=== PATIENT | female | born 1980 | race Caucasian/White ===

== ENCOUNTER 2024-06-29 10:37 | Emergency (ER) | payer OTHER ==
[~2024-06-29] VITALS: Ht 160 cm; Wt 78.5 kg
[2024-06-29] MEDS ORDERED: LITHIUM CARBON300 M2 PO (10:56)
[2024-06-29] MEDS ORDERED: ATAZANAVIR SUL300 MG PO (10:56)
[2024-06-29] MEDS ORDERED: METHYLPHENIDATE10 MG PO (10:56)
[2024-06-29] MEDS ORDERED: ATORVASTATIN CA20 MG PO (10:56)
[2024-06-29] MEDS ORDERED: LEVOTHYROXINE100 MCG PO (10:56)
[2024-06-29] MEDS ORDERED: CETIRIZINE HCL10 MG PO (10:57)
[2024-06-29] MEDS ORDERED: RITONAVIR100 MG PO (10:57)
[2024-06-29] MEDS ORDERED: LEVETIRACETAM500 MG PO (10:57)
[2024-06-29] MEDS ORDERED: TIVICAY50 MG PO (10:57)
[2024-06-29 11:06] LABS: BASOPHILS 1.2 % (0-2); EOSINOPHILS 1.4 % (0-6); HEMATOCRIT 40.3 % (35.0-50.0); HEMOGLOBIN 13.4 g/dL (12.0-18.0); LYMPHOCYTES 33.3 % (24-44); MCH 30.1 (27-36); MCHC 33.3 g/dl (30-36); MCV 90.4 fl (81-99); MONOCYTES 5.6 % (0-12); NEUTROPHILS 58.5 % (39-80); PLATELET COUNT 388 K/uL (140-440); RBC 4.46 M/ul (4.3-5.7); RDW 13.8 (10.5-15.0)
[2024-06-29 11:20] LABS: ALBUMIN 3.8 g/dL (3.4-5.0); ALBUMIN/GLOBULIN RATIO 0.95 (1.1-2.4); ANION GAP 15.9 (7-21); BILIRUBIN, TOTAL 0.6 ng/dL (0.2-1.0); BUN/CREATININE RATIO 9.41 (6.0-28.6); CALCIUM 8.9 mg/dL (8.5-10.1); CREATININE, SERUM 0.85 mg/dL (0.55-1.02); POTASSIUM 3.9 mmol/L (3.5-5.1); PROTEIN, TOTAL 7.8 g/dL (6.4-8.2); TSH, 3RD GENERATION 0.928 uIU/mL (0.358-3.740)
[2024-06-29 12:49] VITALS: BP 131/80
--- NOTE | 2024-06-30 19:42 | EKG ---
[facility] [address] [facility] [place], [place] [address] Signed Normal sinus rhythm Normal ECG No previous ECGs available Confirmed by Dung Gonzalez MD ([id number]) on 06/30/2024 7:42:12 PM Electronically Signed By: DUNG GONZALEZ MD 06/30/241941 PATIENT NAME: ORLIN MORENO Electrocardiogram DATE OF : 76 PHYSICIAN: DUNG GONZALEZ MD REPORT #: [id number] REPORT IS CONFIDENTIAL AND NOT TO BE RELEASED WITHOUT AUTHORIZATION
== END 2024-06-29 12:49 | disposition home or self-care (01) ==
LOC: ED 10:37
PROVIDERS: Emergency Medicine
DX: R00.2 Palpitations (principal); Z79.899 Other long term (current) drug therapy; Z88.2 Allergy status to sulfonamides; E03.9 Hypothyroidism, unspecified
CPT/HCPCS: 36415; 80053; 84443; 84484; 85025; 93005; 93010; 99285

== ENCOUNTER 2024-10-23 13:10 | Emergency (ER) | payer OTHER ==
[~2024-10-23] VITALS: Ht 160 cm; Wt 80.0 kg
[~2024-10-23 13:10] MED LIST: ATAZANAVIR SUL300 MG PO; ATORVASTATIN CA20 MG PO; CETIRIZINE HCL10 MG PO; LEVETIRACETAM500 MG PO; LEVOTHYROXINE100 MCG PO; LITHIUM CARBON300 M2 PO; METHYLPHENIDATE10 MG PO; RITONAVIR100 MG PO; TIVICAY50 MG PO
[2024-10-23] MEDS ORDERED: QUETIAPINE FUMA25 MG PO (13:56)
[2024-10-23] MEDS ORDERED: ARIPIPRAZOLE5 MG PO (13:56)
[2024-10-23] MEDS ORDERED: ondansetron HCL 4 MG/2 ML VIAL IV ONE (14:15)
[2024-10-23 14:23] LABS: ALBUMIN 3.6 g/dL (3.4-5.0); ALBUMIN/GLOBULIN RATIO 0.97 (1.1-2.4); ANION GAP 14.4 (7-21); BILIRUBIN, TOTAL 1.3 ng/dL (0.2-1.0); BUN/CREATININE RATIO 6.57 (6.0-28.6); CALCIUM 9.2 mg/dL (8.5-10.1); CREATININE, SERUM 0.76 mg/dL (0.55-1.02); POTASSIUM 4.4 mmol/L (3.5-5.1); PROTEIN, TOTAL 7.3 g/dL (6.4-8.2)
[2024-10-23 14:29] LABS: BILIRUBIN, URINE NEGATIVE (negative); BLOOD/HGB, URINE NEGATIVE (Negative); KETONE, URINE NEGATIVE (Negative); LEUK ESTERASE, URINE NEGATIVE (negative); NITRITE, URINE NEGATIVE (negative)
[2024-10-23 14:39] LABS: BASOPHILS 0.6 % (0-2); EOSINOPHILS 2.1 % (0-6); HEMATOCRIT 38.9 % (35.0-50.0); HEMOGLOBIN 12.8 g/dL (12.0-18.0); LYMPHOCYTES 29.1 % (24-44); MCH 29.7 (27-36); MCV 89.8 fl (81-99); MONOCYTES 6.7 % (0-12); NEUTROPHILS 61.5 % (39-80); PLATELET COUNT 428 K/uL (140-440); RBC 4.33 M/ul (4.3-5.7); RDW 13.5 (10.5-15.0)
[2024-10-23] MEDS ORDERED: SODIUM CHLORIDE 0.9% 1,000 ML IV PRN (14:45)
[2024-10-23 14:50] LABS: AMPHETAMINES, URINE NEGATIVE (NEGATIVE); BARBITURATES, URINE NEGATIVE (NEGATIVE); BENZODIAZEPINE, URINE NEGATIVE (NEGATIVE); BUPRENORPHINE, URINE NEGATIVE (NEGATIVE); CANNABINOID, URINE POSITIVE (NEGATIVE); COCAINE, URINE NEGATIVE (NEGATIVE); ECSTASY, URINE NEGATIVE (NEGATIVE); FENTANYL, URINE NEGATIVE (NEGATIVE); METHADONE, URINE NEGATIVE (NEGATIVE); OPIATES, URINE NEGATIVE (NEGATIVE); OXYCODONE, URINE NEGATIVE (NEGATIVE); PHENCYCLIDINE, URINE NEGATIVE (NEGATIVE)
[2024-10-23 15:45] VITALS: BP 118/86
== END 2024-10-23 15:58 | disposition home or self-care (01) ==
LOC: ED 13:10
PROVIDERS: Emergency Medicine
DX: R25.1 Tremor, unspecified (principal); E03.9 Hypothyroidism, unspecified; Z79.890 Hormone replacement therapy; Z88.2 Allergy status to sulfonamides; Z79.899 Other long term (current) drug therapy
CPT/HCPCS: 36415; 70450; 80053; 80307; 81003; 82553; 83690; 84703; 85025; 99284-25; J7030